=== PATIENT | female | born 1945 | race Caucasian/White ===

== ENCOUNTER → 2017-08-27 | Outpatient (CLI) | payer OTHER, BC | LOC: FIMAGING 14:20 | PROVIDERS: ATTEND Family Medicine | DX: Z12.31 Encounter for screening mammogram for malignant neoplasm of breast (principal); Z85.3 Personal history of malignant neoplasm of breast; Z80.3 Family history of malignant neoplasm of breast | CPT/HCPCS: G0202 ==

== ENCOUNTER 2017-11-26 13:09 | Emergency (ER) | payer OTHER, BC ==
[2017-11-26 13:21] VITALS: RESP 16
--- NOTE | 2017-11-26 15:11 | EDPHY ---
H & P Stated Complaint: r lower leg swelling/pain Source: Patient, Family () Exam Limitations: No limitations - Personal History Current Tetanus/Diphtheria Vaccine: No - Medical/Surgical History Hx Asthma: No Hx Chronic Respiratory Disease: No Hx Diabetes: No Hx Cardiac Disease: No Hx Renal Disease: No Hx Cirrhosis: No Hx Alcoholism: No Hx HIV/AIDS: No Hx Splenectomy or Spleen Trauma: No Other PMH: lumpectomy. hipreplacement. r shoulder surg - Social History Smoking Status: Never smoked Time Seen by Provider: 11/26/17 14:20 HPI/ROS: HPI: This is a 72-year-old female presents with Chief Complaint: r lower leg swelling/pain Location: Right lower inner leg Quality: Swelling Duration: 1 day Signs and Symptoms: No bleeding, no radiation, no numbness, no weakness, no tingling, no incontinence, no decreased range of motion, + swelling, + pain Timing: Sudden Severity: Moderate Context: Patient complains of right lower leg medial aspect fluctuant area at that is painful to palpation x1 day. Pain is worsened with weight-bearing and bending of ankle. Pain is nonradiating. She does not remember any injury/ trauma recently. Denies any blood thinner use. No recent long distance travel. Not on hormone replacement therapy. Patient reports she has a history of a DVT approximately 5+ years ago no longer on anticoagulation. Denies any shortness of breath/palpitations/hemoptysis/skin color changes/paresthesias. Modifying Factors: None Comment: ROS: see HPI Constitutional: No fever, no chills, no weight loss Eyes: No blurred vision Respiratory: No shortness of breath, no cough Cardiovascular: No chest pain Gastrointestinal: No nausea, no vomiting no diarrhea Genitourinary: No dysuria Extremities: No myalgias Neurologic: No weakness, no numbness Skin: No rashes Hematologic: No bruising, no bleeding MEDICAL/SURGICAL/SOCIAL HISTORY: Medical history: Generally healthy. Does not take any regular medications. Surgical history: lumpectomy, hip replacement, r shoulder surg Social history: . CONSTITUTIONAL: Extremely well-appearing elderly white female, awake and alert , no obvious distress HEENT: Atraumatic and normocephalic, PERRL, EOMI. Tympanic membranes clear. Oropharynx clear, no exudate and moist pink mucosa. Airway patent. No lymphadenopathy. No meningismus. Cardiovascular: Normal S1/S2, regular rate, regular rhythm, without murmur rub or gallop. PULMONARY/CHEST: Symmetrical and nontender. Clear to auscultation bilaterally. Good air movement. No accessory muscle usage. ABDOMEN: Soft, nondistended, nontender, no rebound, no guarding, no peritoneal signs, no masses or organomegaly. No CVAT. EXTREMITIES: 2/2 DP and PT pulses, strength 5/5, Ankle: Plantar flexion to 50 , dorsiflexion to 20. Foot inversion to 35 degree. No tenderness/swelling Anterior talofibular ligament. No tenderness/swelling Calcaneofibular ligament , no tenderness/swelling posterior talofibular ligament, no tenderness/swelling posterior inferior tibiofibular ligament. Achilles tendon intact. There is approximately 2 mm area of tenderness in the right lower leg medial aspect; no erythema/fluctuance/ecchymosis appreciated. no deformities, no clubbing, no cyanosis or edema. NEUROLOGICAL: no focal neuro deficits. GCS 15. SKIN: Warm and dry, no erythema. no rash. Good capillary refill. (CarolFatemeh) Constitutional: Initial Vital Signs Temperature (C) 36.7 C 11/26/17 13:16 Heart Rate 72 11/26/17 13:16 Respiratory Rate 16 11/26/17 13:16 Blood Pressure 141/78 H 11/26/17 13:16 O2 Sat (%) 99 11/26/17 13:16 O2 Delivery Mode Room Air Allergies/Adverse Reactions: acetaminophen [From Vicodin] Allergy (Unknown, Verified 01/16/14 12:32) amoxicillin [Amoxicillin] Allergy (Unknown, Verified 01/16/14 12:31) amoxicillin trihydrate [From Augmentin] Allergy (Unknown, Verified 01/16/14 12: 31) celecoxib [From Celebrex] Allergy (Unknown, Verified 01/16/14 12:31) Anxiety codeine Allergy (Unknown, Verified 01/16/14 12:31) hydrocodone bitartrate [From Vicodin] Allergy (Unknown, Verified 01/16/14 12:32) meperidine HCl [From Demerol] Allergy (Unknown, Verified 01/16/14 12:31) potassium clavulanate [From Augmentin] Allergy (Unknown, Verified 01/16/14 12:31 ) Home Medications: Medication Instructions Recorded Dicyclomine 01/16/14 Levothyroxine 01/16/14 GABAPENTIN 11/26/17 METRONIDAZOLE 11/26/17 Nortriptyline HCl 11/26/17 Temazepam 11/26/17 Voltaren 11/26/17 Zomitriptan 11/26/17 Medical Decision Making - Diagnostics Imaging Results: Imaging Impressions Extremity Venous Study 11/26/17 14:23 Impression: No deep venous thrombosis right leg. Findings and recommendations discussed with Emergency Department physician, Fatemeh Medina PA-C at 15:34 hour, 11/26/2017. Final report concurs with initial preliminary interpretation. Ankle X-Ray 11/26/17 15:35 Impression: 1. 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 2. No evidence of acute fracture. 3. Small plantar calcaneal spur. ED Course/Re-evaluation: Right lower extremity ultrasound and right ankle x-ray ordered Called by Dr. Santiago who advised no deep venous thrombosis; small fluid collection consistent with tendinitis observed X-ray shows old distal fibular fracture; no signs of acute fracture/ dislocation. Ankle mortise looks great. No signs of neurovascular compromise/tenting of skin/compartment syndrome/ extremities and joints examined above and below area of concern and are neurovascularly intact/thrombophlebitis. Patient prefers to apply Myron wrap from home, rice therapy This patient was seen under the supervision of my secondary supervising physician. I evaluated care for this patient independently. Discussed this patient with Dr. Rajan who did not see the patient. (Fatemeh Medina) The patient was evaluated and managed by the physician licensed physical therapy assistant. I have reviewed this chart and I agree with the findings and plan of care as documented , as indicated by my signature. I am the secondary supervising physician. ( Jacklyn Rajan) Differential Diagnosis: Differential diagnosis includes but is not limited to deep venous thrombosis, thrombophlebitis, hematoma, contusion, tendinitis, bursitis, sprain, fracture. (Fatemeh Medina) Departure - Departure Disposition: Home, Routine, Self-Care Clinical Impression: Tendinitis of right ankle Condition: Good Instructions: Tendinitis (ED) Additional Instructions: Wear an MYRON wrap for support, compression and pain reduction. Take Tylenol 650 mg every 4 hours and/or Ibuprofen 600 mg every 8 hours with food as needed for pain. Apply ice for 30 minutes at a time; 2-3 times per day for the next 1-2 days. Follow up with Orthopedics in 1-2 weeks if symptoms persist or worsen at which time they will evaluate and recommend with you if conservative management adjuvant therapy is indicated. Ultrasound today does NOT show a blood clot. The x-rays obtained in the emergency department today demonstrate no evidence of an obvious fracture. Referrals: Trinh Yi MD [Primary Care Provider] - As per Instructions Mansi Delvalle MD [Medical Doctor] - As per Instructions
[2017-11-26 16:54] VITALS: BP 156/82; PULSE 81; TEMP 98.6; O2SAT 97
== END 2017-11-26 16:54 | disposition home or self-care (01) ==
DX: M77.9 Enthesopathy, unspecified (principal)

== ENCOUNTER → 2018-08-28 | Outpatient (CLI) | payer OTHER, BC | LOC: FIMAGING 10:12 | PROVIDERS: ATTEND Family Medicine | DX: Z12.31 Encounter for screening mammogram for malignant neoplasm of breast (principal); Z85.3 Personal history of malignant neoplasm of breast ==

== ENCOUNTER 2018-10-07 10:11 | Emergency (ER) | payer OTHER, BC ==
--- NOTE | 2018-10-07 11:51 | EDPHY ---
H & P Time Seen by Provider: 10/07/18 10:25 HPI/ROS: CLINICAL IMPRESSION: Right foot cyst ASSESSMENT/PLAN: 73-year-old female presents to the emergency department with atraumatic swelling to the sole of the right foot noticed since last night. Patient has a small, pea-sized, mobile mass on the sole of the foot not associated with puncture wound, erythema, cellulitic change, induration, necrotizing fasciitis, or signs of trauma. Ultrasound read by Radiology as cystic lesion superficial to the plantar fascia. No underlying signs of abscess. Patient was referred to Podiatry for further management. Referrals given. Warning signs return to ED sooner outlined and discharge. DIFFERENTIAL DX: Differential includes but not limited to Ganglion cyst, abscess, malignant lesion ED PROCEDURES: See ultrasound report and chart CHIEF COMPLAINT: Bump on right foot HPI: 73-year-old female presents to the emergency department with complaints of a painful bump on the bottom of the right foot that she 1st noticed last night. Patient reports initially the bump looked purple. She denies any trauma, puncture wound, injury or bleeding. She has never noticed this before. No new footwear. She has not used any treatments for this. PMH: See chart Pertinent Past Surgical History: Noncontributory ROS: A full 10 point review of systems was negative except for those mentioned in HPI. PHYSICAL EXAM: General Appearance: Alert, oriented, appropriate, cooperative, NAD, well hydrated, non-toxic appearing, VSS, no hypoxia. Skin: Warm, dry, no rashes, no nodules on palpation. Musculoskeletal: Soft, pea size, mobile mass on the sole of the right foot. No obvious puncture wound, bleeding or trauma. No surrounding erythema, warmth or suggestion of cellulitis, deep space abscess, necrotizing fasciitis. MDM: Patient was seen independently by established practice protocols. Secondary supervising physician at time of evaluation was Dr. Bustamante. Diagnosis: Cystic lesion of the right foot. New, requires workup Summary: See Assessment and Plan for summary of ED visit Clinical lab tests: Not obtained. Independent visualization of images, tracing, or specimens: No. Discussed patient with another provider: Dr. Tineo with Radiology Risk of comlications, morbidity, mortality: Presenting problem low Diagnostic procedures low Management Options low Patient Progress: Stable. Smoking Status: Never smoked Constitutional: Initial Vital Signs Temperature (C) 37.3 C 10/07/18 10:16 Heart Rate 90 10/07/18 10:16 Respiratory Rate 16 10/07/18 10:16 Blood Pressure 169/80 H 10/07/18 10:16 O2 Sat (%) 95 10/07/18 10:16 O2 Delivery Mode Room Air Allergies/Adverse Reactions: acetaminophen [From Vicodin] Allergy (Unknown, Verified 10/07/18 10:15) amoxicillin [Amoxicillin] Allergy (Unknown, Verified 10/07/18 10:15) amoxicillin trihydrate [From Augmentin] Allergy (Unknown, Verified 10/07/18 10: 15) celecoxib [From Celebrex] Allergy (Unknown, Verified 10/07/18 10:15) Anxiety codeine Allergy (Unknown, Verified 10/07/18 10:15) hydrocodone bitartrate [From Vicodin] Allergy (Unknown, Verified 10/07/18 10:15) meperidine HCl [From Demerol] Allergy (Unknown, Verified 10/07/18 10:15) potassium clavulanate [From Augmentin] Allergy (Unknown, Verified 10/07/18 10:15 ) Home Medications: Medication Instructions Recorded Dicyclomine 01/16/14 Levothyroxine 01/16/14 GABAPENTIN 11/26/17 METRONIDAZOLE 11/26/17 Nortriptyline HCl 11/26/17 Temazepam 11/26/17 Voltaren 11/26/17 Zomitriptan 11/26/17 MDM/Departure - MDM Imaging Results: Imaging Impressions Extremity Ultrasound 10/07/18 10:46 Impression: The palpable area is cystic, as detailed above. Referral to a deputy brand inspector could be considered as clinically directed. Results called and discussed with Alexis Johnson PA-C on 10/07/2018 at 11:42. Imaging: Discussed imaging studies w/ orthopedically impaired teacher Radiologist, I viewed and interpreted images myself - Depart Disposition: Home, Routine, Self-Care Clinical Impression: Ganglion cyst of right foot Condition: Good Instructions: Ganglion Cysts (ED) Additional Instructions: DISCHARGE INSTRUCTIONS FROM YOUR DOCTOR Thank you for visiting our emergency department today. Please keep in mind that discharge from the emergency department does not mean that there is nothing wrong - it simply means that we have not identified an emergency condition that requires further evaluation or treatment in the hospital. You should always plan to follow up with primary care for re-evaluation of your condition in the next 2-3 days. If you have been referred to a specialist, please call as soon as possible (today or tomorrow) to schedule your follow up appointment at the appropriate time. [Your ultrasound was read by the radiologist showing a cystic lesion on the bottom of the right foot, superficial to the plantar fascia. We recommend that you see a deputy brand inspector for this as they may want additional imaging before discussing management. We do not remove these in the ED. Please contact Podiatry this week, a referral was given. Return to the emergency department for increased swelling, pain, redness, warmth, fever greater than 100.4, or any other concern. ] People present with illnesses and injuries in different ways, and it is always possible that we have missed something. You may always return for re-evaluation if symptoms worsen or if they are not improving or if you develop new/different symptoms. Again, thank you for choosing our emergency department. We hope that you feel better. Referrals: Katelynn Lynch MD [Primary Care Provider] - As per Instructions Chayo Daniels DPM [Doctor of Podiatric Medicine] - As per Instructions
[2018-10-07 12:01] VITALS: BP 169/99
== END 2018-10-07 12:01 | disposition home or self-care (01) ==
DX: M67.471 Ganglion, right ankle and foot (principal)

== ENCOUNTER → 2018-11-05 | Outpatient (CLI) | payer OTHER, BC ==
[~2018-11-05] MED LIST: GADOBUTROL 10 ML VIAL IVP ONE
== END ==
LOC: FIMAGING 13:16
PROVIDERS: ATTEND Podiatrist Foot & Ankle Surgery
DX: R22.41 Localized swelling, mass and lump, right lower limb (principal)
CPT/HCPCS: 73720; A9585